=== PATIENT | female | born 1990 | race American Indian/Alaskan Native ===

== ENCOUNTER 2021-08-22 08:28 | Emergency (ER) | payer MEDICAID ==
--- NOTE | 2021-08-22 09:33 | Emergency Department Report ---
ED General Adult HPI - General Chief complaint: Skin/Abscess/Foreign Body Stated complaint: SPIDER BITE Time Seen by Provider: 08/22/21 09:27 Source: patient Mode of arrival: Ambulatory Limitations: No Limitations - History of Present Illness Initial comments: 30-year-old female no significant past medical history reports to the ER with complaints of spider bite to the right side of her neck that happened about 2 to 3 days ago. Patient reports swelling and drainage she tried to pop the bump that was present. Patient reports pain in her right side of her neck. No other acute signs reported. - Related Data Previous Rx's Medication Instructions Recorded Last Taken Type Sulfamethoxazole/Trimethoprim 1 each PO BID 7 Days #14 tab 08/22/21 Unknown Rx [Bactrim DS TAB] ED Review of Systems ROS: Stated complaint: SPIDER BITE Other details as noted in HPI Comment: All other systems reviewed and negative Skin: other (Spider bite to the right side of her neck.) ED Past Medical Hx - Past Medical History Previous Medical History?: No - Surgical History Past Surgical History?: No - Social History Smoking Status: Never Smoker - Medications Home Medications: Home Medications Medication Instructions Recorded Confirmed Last Taken Type Sulfamethoxazole/Trimethoprim 1 each PO BID 7 Days #14 tab 08/22/21 Unknown Rx [Bactrim DS TAB] ED Physical Exam - General Limitations: No Limitations General appearance: alert, in no apparent distress - Head Head exam: Present: atraumatic, normocephalic - Eye Eye exam: Present: normal appearance - ENT ENT exam: Present: mucous membranes moist - Neck Neck exam: Present: normal inspection - Respiratory Respiratory exam: Present: normal lung sounds bilaterally. Absent: respiratory distress - Cardiovascular Cardiovascular Exam: Present: regular rate, normal rhythm. Absent: systolic murmur, diastolic murmur, rubs, gallop - GI/Abdominal GI/Abdominal exam: Present: soft, normal bowel sounds - Extremities Exam Extremities exam: Present: normal inspection - Back Exam Back exam: Present: normal inspection - Neurological Exam Neurological exam: Present: alert, oriented X3 - Psychiatric Psychiatric exam: Present: normal affect, normal mood - Skin Skin exam: Present: warm, dry, intact, normal color, other (Small bite wound noted to the right side of the neckpatient has been picking at spider bite small wound present. Wound less than half a centimeter in diameter. Erythema is present with tenderness. No extensive swelling noted to the right side of the neck.). Absent: rash ED Course Vital Signs 08/22/21 08:31 Temperature 97.9 F Pulse Rate 76 Respiratory 14 Rate Blood Pressure 112/76 O2 Sat by Pulse 99 Oximetry ED Medical Decision Making - Medical Decision Making 30 female reports to the ER complains of spider bite to the right side of the neck. Bite fabian is noted to the right side of the neck. Small wound present as patient has been picking at spider bite. No drainage noted. Erythema is present is bite fabian with slight tenderness. Patient reports no other acute symptoms at this time. No airway concerns patient is able to fully move her neck. Patient to be started on antibiotics Bactrim twice daily x7 days. Patient agrees with plan of care and verbalized understanding. No further evaluation needed at this time. Patient informed that if symptoms were to get worse while currently on antibiotics to report back to the ER. As well as follow her primary care doctor as needed. Critical care attestation.: If time is entered above; I have spent that time in minutes in the direct care of this critically ill patient, excluding procedure time. ED Disposition Clinical Impression: Spider bite Qualifiers: Encounter type: initial encounter Injury intent: accidental or unintentional Qualified Code(s): T63.301A - Toxic effect of unspecified spider venom, accidental (unintentional), initial encounter Disposition: HOME / SELF CARE / HOMELESS Is pt being admited?: No Condition: Stable Instructions: Spider Bite Prescriptions: Sulfamethoxazole/Trimethoprim [Bactrim DS TAB] 1 each PO BID 7 Days #14 tab [facility] - 3-5 Days Time of Disposition: 09:40
[2021-08-22 10:24] VITALS: BP 105/67
== END 2021-08-22 10:23 | disposition home or self-care (01) ==
LOC: ED 08:28
DX: T63.301A Toxic effect of unspecified spider venom, accidental (unintentional), initial encounter (principal); Y92.89 Other specified places as the place of occurrence of the external cause
CPT/HCPCS: 99282